=== PATIENT | male | born 1925 | race African-American/Black ===

== ENCOUNTER 2017-03-17 14:47 | Observation (INO) | payer MEDICARE, BC ==
[2017-03-17 16:32] LABS: Troponin I 0.098 ng/mL (< 0.028)
[2017-03-17 17:19] VITALS: BMI 19.7
[2017-03-17] MEDS ORDERED: Mag-Al 1200 mg/1200 mg/30 ML UDCUP PO PRN (17:21)
[2017-03-17] MEDS ORDERED: Acetaminophen 325 MG TAB PO PRN (17:21)
--- NOTE | 2017-03-17 17:41 | HP ---
PRIMARY CARE PHYSICIAN: Lane Galicia M.D. CHIEF COMPLAINT: \\\\"My legs gave out on me.\\\\" HISTORY OF PRESENT ILLNESS: Mr. Ruff is a pleasant 89-year-old gentleman who has a history of hy pertension. He lives at home with his family. Earlier today, he was in the bathroom. It is unclea r whether or not he had urinated or defecated but his grandson saw him in the bathroom. He says he appeared to be holding onto the toilet for dear life when finally his legs began to give out on him. His grandson basically helped him to the ground. It is unclear whether or not he actually lost co nsciousness or not, or basically just fell. The patient says that he does not remember the events o f earlier today. He denies any chest pain or shortness of breath. His daughter is also at the beds ken and when asked if anything like this has happened before, she stated yes. She says it happened about a month ago. At that time, he appeared to basically just become unresponsive when family was talking to him. Again, he basically would just kind of stare blankly and it is unclear whether or n ot he was seated or standing at that time, but apparently by the time EMS had arrived, he was back t o his baseline and they did not seek any specific therapy for this. I suspect the patient probably has some baseline dementia as he is unable to tell me what year it is, and he is unable to recall th e events of earlier today and the family states that this is about his baseline. The review of syst ems is essentially unobtainable as the patient essentially has no recollection of what happened radha ier today. Currently, he has no complaints, but the review of systems is unreliable. PAST MEDICAL HISTORY: Significant for what sounds like a peptic ulcer in the past and hypertension. PAST SURGICAL HISTORY: He has had a hip fracture repair. ALLERGIES: No known drug allergies. SOCIAL HISTORY: He is . He lives at home with family. He is a nonsmoker, nondrinker. CODE STATUS: FULL CODE. His daughter Rogelio Black is his surrogate decision maker. She sounds like she is the third oldest daughter, but she says she lives the closest and usually makes all the deci sions. FAMILY HISTORY: Significant for diabetes, cancer of the breast and colon, and hypertension. CURRENT MEDICATIONS: Include omeprazole and some type of blood pressure medicine, but they were uns ure of the name and in the ER records it is listed as amlodipine 5 mg twice a day. PHYSICAL EXAMINATION: GENERAL: He is oriented to person only and he does know it is Saturday. He does know the names of hi s family who were at the bedside. The patient is well developed, but he does appear to be undernour ished. He has some temporal wasting and general muscle wasting throughout. VITAL SIGNS: Blood pressure was 112/88, heart rate 74, respiratory rate of 14, temperature is 97.6, O2 sat was 99% on room air. HEENT: His pupils are equal, round, and reactive. Extraocular muscles are intact. Sclerae are ani cteric. Throat: There is no erythema, no exudates. NECK: There is no adenopathy, no bruits. LUNGS: Clear. No wheezing, no rales. CARDIOVASCULAR: He has a normal S1 and S2. There is no S3 or S4, no murmurs, clicks or rubs. ABDOMEN: Soft, nontender, nondistended. Positive for bowel sounds. No rebound, no guarding. EXTREMITIES: There is no clubbing, cyanosis, no edema. SIGNIFICANT LABORATORY DATA: His white blood cell count was 6.9, hemoglobin 10.1, hematocrit is 33. 2, platelet count is 296. Sodium 137, potassium 4.7, chloride is 107, CO2 is 22, BUN of 27, creatin ine 1.37, glucose is 107. The patient had a CT scan of the brain showing no acute intracranial proc ess. ASSESSMENT: This is a pleasant 89-year-old gentleman who was brought to the Emergency Room after he had what sounds like a presyncopal episode, possibly syncopal at home. This was while he was in th e bathroom. I suspect it could be related to micturition syncope. He is also likely a bit volume d epleted as well. He will be placed in observation. We will get cardiac enzymes as well as an echoc ardiogram and carotid Dopplers primarily as a precaution. We will also monitor him for occult atria l fibrillation. His EKG was sinus rhythm and the rate was [address] wave changes on admission. If these are negative, then again likely it was micturition syncope. The patient als o appears a bit malnourished. I suspect likely due to early dementia. We will try supplementing hi m with Ensure and he may need an appetite stimulant as well. For hypertension, we will need to verify and reconcile with antihypertensive medications and restart this as indicated.
[2017-03-17] MEDS: Sodium Chloride 0.9% 1,000 ML IV SCH (18:34)
[2017-03-17 19:23] LABS: Troponin I 0.018 ng/mL (< 0.028)
[2017-03-17] MEDS ORDERED: FLU VACC TS2017-18 (>65YR) 0.5 ML SYRINGE IM ONE (21:00)
--- NOTE | 2017-03-17 21:53 | ULT ---
CAROTID ULTRASOUND: History: TIA. Comparison: None. Technique: Grayscale, color flow, doppler imaging of the spectral waveform analysis of carotid and vertebral ar teries. FINDINGS: Right carotid: There is minimal intimal thickening of the common carotid artery. Small amount of jenny cified plaque in the right carotid bifurcation. Peak systolic velocity internal carotid artery is 63 .0 cm/sec. Peak systolic velocity internal carotid is 39.0 cm/sec. Systolic ICA to CCA ratio is 0.89 . Left carotid. There is a significant soft plaque in the left carotid bulb with significant cross sec tional narrowing. Peak systolic velocity of the common carotid artery is 60 cm/sec. Peak systolic ve locity of the internal carotid is 68.8 cm/sec. Systolic ICA/CCA ratio is 1.2. There is atherosclerot ic disease in the proximal left external carotid artery. Antegrade flow in both vertebral arteries. IMPRESSION: No sonographic evidence of hemodynamically significant stenosis. However, there is significant ather osclerotic disease in the left carotid bulb. Better interrogation with CT angiogram of the neck is r ecommended. POS: PPP
[2017-03-17 22:25] LABS: Troponin I Less than 0.010 ng/mL (< 0.028)
[2017-03-18 05:57] LABS: #Eosinphils 0.1 thou/uL (0.0-0.7); #Lymphocytes 1.2 thou/uL (1.20-3.40); #Monocytes 0.4 thou/uL (0.11-0.59); %Basophils 0.6 % (0.0-1.0); %Eosinophils 2.5 % (0.0-10.0); %Lymphocytes 20.6 % (21.0-51.0); %Monocytes 7.4 % (0.0-10.0); Anion Gap 11 mmol/L (10-20); BUN (Urea Nitrogen) 20 mg/dL (8.4-25.7); Calc. Creatinine Clearance 33 mL/min (70-130); Calcium 8.8 mg/dL (7.8-10.44); Carbon Dioxide 20 mmol/L (23-31); Chloride 107 mmol/L (98-107); Cholesterol 139 mg/dl (< 200 Desired); Estimated GFR-MDRD 74; Hematocrit 32.7 % (42.0-52.0); LDL Cholesterol, Calculated 73 mg/dL; Mean Platelet Volume 9.5 fL (7.4-10.4); Red Blood Cell (RBC) Count 3.85 mill/uL (4.70-6.10); White Blood Cell (WBC) Count 5.8 thou/uL (4.8-10.8)
[2017-03-18 05:58] LABS: Microcytosis SLIGHT = 6-15 cells (100X) (0-5/hpf)
[2017-03-18] MEDS: Sodium Chloride 0.9% 1,000 ML IV SCH (06:07)
[2017-03-18] MEDS ORDERED: Calcium Carbonate 500 MG ChewTAB PO PRN (08:32)
[2017-03-18] MEDS ORDERED: Ondansetron ODT 4 MG TAB PO PRN (08:32)
[2017-03-18] MEDS ORDERED: Senokot 8.6 MG TAB PO PRN (08:32)
[2017-03-18] MEDS ORDERED: Ondansetron HCl/PF 4 MG/2 ML Vial IVP PRN (08:32)
[2017-03-18] MEDS ORDERED: Nitroglycerin 0.4 MG TAB (25 Tab Bottle) PO PRN (08:32)
[2017-03-18 08:56] LABS: Magnesium 2.4 mg/dL (1.6-2.6); Phosphorus 2.3 mg/dL (2.3-4.7)
[2017-03-18] MEDS ORDERED: Cyanocobalamin (Vitamin B-12) 1,000 MCG TAB PO SCH (09:00)
[2017-03-18] MEDS ORDERED: Amlodipine 5 MG TAB PO SCH ×3 (09:00→21:00)
[2017-03-18] MEDS ORDERED: Docusate 100 MG CAP PO SCH ×2 (09:00→21:00)
[2017-03-18] MEDS ORDERED: Enoxaparin Sodium 40 MG/0.4 ML SYRINGE SC SCH (09:00)
[2017-03-18] MEDS ORDERED: Multivit, Therapeutic 1 TAB PO SCH (09:00)
[2017-03-18] MEDS ORDERED: Folic Acid 1 MG TAB PO SCH (09:00)
--- NOTE | 2017-03-18 11:22 | PDOC.PN ---
- Subjective Encounter Start Date: 03/18/17 Encounter Start Time: 10:00 Patient seen and examined. No new complaints. No overnight events - Objective Resuscitation Status: Resuscitation Status FULL:Full Resuscitation MAR Reviewed: Yes Vital Signs & Weight: Vital Signs (12 hours) Temp Pulse Resp BP BP BP BP 03/18/17 10:41 70 166/98 H 03/18/17 10:20 03/18/17 09:00 180/104 H 166/98 H 159/87 H 03/18/17 08:00 98.5 F 70 20 03/18/17 07:43 98.5 F 70 20 170/94 H 03/18/17 04:15 98.5 F 66 16 165/81 H 03/18/17 00:00 98.2 F 65 18 159/81 H Pulse Ox 03/18/17 10:41 03/18/17 10:20 98 03/18/17 09:00 03/18/17 08:00 03/18/17 07:43 100 03/18/17 04:15 95 03/18/17 00:00 95 Weight Weight 115 lb I&O: 03/17/17 03/18/17 03/19/17 06:59 06:59 06:59 Intake Total 1180 209 Output Total 275 Balance 905 209 Result Diagrams: 03/18/17 05:19 03/18/17 05:19 Radiology Reviewed by me: No (Carotid - neg) EKG Reviewed by me: Yes (Tele SR) Phys Exam - Physical Examination Constitutional: NAD Respiratory: no wheezing, no rales, no rhonchi Symmetrical Cardiovascular: RRR, no rub, gallop no heaves/pulsations Gastrointestinal: soft, non-tender, no distention, positive bowel sounds Musculoskeletal: no edema Neurological: non-focal, moves all 4 limbs Dx/Plan (1) Syncope Code(s): R55 - SYNCOPE AND COLLAPSE Status: Acute (2) Elevated troponin Code(s): R74.8 - ABNORMAL LEVELS OF OTHER SERUM ENZYMES Status: Acute Comment: prob due to ml (3) ML (acute kidney injury) Code(s): N17.9 - ACUTE KIDNEY FAILURE, UNSPECIFIED Status: Acute (4) Chronic anemia Code(s): D64.9 - ANEMIA, UNSPECIFIED Status: Chronic (5) CKD (chronic kidney disease) stage 2, GFR 60-89 ml/min Code(s): N18.2 - CHRONIC KIDNEY DISEASE, STAGE 2 (MILD) Status: Chronic (6) GERD (gastroesophageal reflux disease) Code(s): K21.9 - GASTRO-ESOPHAGEAL REFLUX DISEASE WITHOUT ESOPHAGITIS Status: Chronic (7) HTN (hypertension) Code(s): I10 - ESSENTIAL (PRIMARY) HYPERTENSION Status: Chronic - Plan cont current plan of care, plan discussed w/ family, PT/OT, DVT proph w/SCDs * DC IV fluids * Cont Amlodipine * Await Echo * Consult Cardio - family requested * Cont to monitor * DC planning Review of Systems - Review of Systems Respiratory: negative: Cough, Dry, Shortness of Breath, Hemoptysis, SOB with Excertion, Pleuritic Pain, Sputum, Wheezing Cardiovascular: negative: Chest Pain, Palpitations, Orthopnea, Paroxysmal Noc. Dyspnea, Edema, Light Headedness, Other Gastrointestinal: negative: Nausea, Vomiting, Abdominal Pain, Diarrhea, Constipation, Melena, Hematochezia, Other - Medications/Allergies Allergies/Adverse Reactions: Allergies Allergy/AdvReac Type Severity Reaction Status Date / Time No Known Drug Allergies Allergy Verified 03/17/17 17:21 Medications: Current Medications Acetaminophen (Tylenol) 650 mg PO Q4H PRN PRN Reason: Headache/Fever or Pain Al Hydroxide/Mg Hydroxide (Maalox) 30 ml PO Q6H PRN PRN Reason: Heartburn or Indigestion Amlodipine Besylate (Norvasc) 5 mg PO BID [facility] Calcium Carbonate (Tums) 1,000 mg PO Q4H PRN PRN Reason: Heartburn or Indigestion Calcium/Vitamin D (Caltrate 600 + Vit D) 1 tab PO BID[facility] Cyanocobalamin (Vitamin B-12) 1,000 mcg PO DAILY [facility] Last Admin: 03/18/17 10:40 Dose: 1,000 mcg Docusate Sodium (Colace) 100 mg PO BID [facility] Last Admin: 03/18/17 10:40 Dose: 100 mg Folic Acid (Folvite) 1 mg PO DAILY [facility] Last Admin: 03/18/17 10:40 Dose: 1 mg Multivitamins (Theragran) 1 tab PO DAILY [facility] Last Admin: 03/18/17 10:41 Dose: 1 tab Nitroglycerin (Nitrostat) 0.4 mg PO Q5MIN PRN PRN Reason: Chest Pain Ondansetron HCl (Zofran Odt) 4 mg PO Q6H PRN PRN Reason: Nausea/Vomiting Ondansetron HCl (Zofran) 4 mg IVP Q6H PRN PRN Reason: Nausea/Vomiting Pantoprazole Sodium (Protonix) 40 mg PO DAILY [facility] Last Admin: 03/18/17 08:58 Dose: 40 mg Senna (Senokot) 2 tab PO HSPRN PRN PRN Reason: Constipation Sodium Chloride (Flush - Normal Saline) 10 ml IVF PRN PRN PRN Reason: Saline Flush
[2017-03-18] MEDS ORDERED: Polyethylene Glycol 3350 17 GM Packet PO PRN (12:38)
[2017-03-18] MEDS ORDERED: hydrALAZINE 20 MG/ML VIAL SLOW IVP PRN (12:58)
[2017-03-18 15:35] VITALS: TEMP 98.3
[2017-03-18 15:58] VITALS: BP 129/75
--- NOTE | 2017-03-18 16:13 | CON ---
CARDIOLOGY CONSULTATION NOTE DATE OF CONSULTATION: 03/18/2017 REFERRING PHYSICIAN: Dr. Engel. REASON FOR CONSULTATION: Reported syncope. HISTORY OF PRESENT ILLNESS: Mr. Ruff is a pleasant 89-year-old black gentleman who was brought t o the Emergency Department by family after what is described as his legs giving out on him while goi ng to the bathroom. He was urinating and had rocked forward and his son walked in to the bathroom t o keep him from falling. He fell backwards into his arms and he set him on the floor. He did not l ose consciousness as far as they know, but he had a little memory of the event. He denies any dizziness, chest pain, palpitations, shortness of breath or other cardiovascular sympt oms prior to or after the event and he was brought in for observation. His observation telemetry st rips and vitals have proved unremarkable. PAST MEDICAL HISTORY: 1. Hypertension. 2. Peptic ulcer disease. PAST SURGICAL HISTORY: Hip fracture repair. ALLERGIES: No known drug allergies. SOCIAL HISTORY: He is . He lives at home with his family. He denied tobacco use or ethanol abuse. He has never used drugs. FAMILY HISTORY: Negative with respect to premature atherosclerosis. CURRENT MEDICATIONS: At home include: 1. Omeprazole 20 mg daily. 2. Amlodipine 5 mg b.i.d. REVIEW OF SYSTEMS: As per the history of present illness. Remainder of 12-system review is negativ e. PHYSICAL EXAMINATION: VITAL SIGNS: Blood pressure is 147/91, pulse 64 and regular, respiratory rate 20 and nonlabored, te mperature 98.1, oxygen saturation 98% on room air. GENERAL: This is a well-developed, thin, elderly appearing 89-year-old black gentleman in no acute distress. He is alert. He is oriented. He does answer questions, but is quite hard of hearing. HEENT: The head was atraumatic and normocephalic. Pupils are equally round and reactive. Sclerae and conjunctivae are clear. There are no oral lesions. NECK: Supple. No JVD, thyromegaly or carotid bruits. CHEST: Symmetrical inspiration and expiration. HEART: Regular rate and rhythm with no murmur, S3 or S4. PMI is nondisplaced, not enlarged. LUNGS: Clear to auscultation in all telles. No adventitious sounds appreciated. ABDOMEN: Soft, nontender and nondistended, without mass or organomegaly. Bowel sounds are present in all 4 quadrants. No flank bruits auscultated. EXTREMITIES: 2+ pulses noted bilaterally in the upper and lower extremity, strength 5/5 bilaterally . There is no clubbing, cyanosis or edema. NEUROLOGIC: Grossly intact without focal motor deficits appreciated. DATABASE: EKG reveals sinus rhythm with nonspecific T changes. LABORATORY DATA: CBC reveals a white count of 5, hemoglobin and hematocrit 9 and 32, platelet count elevated too numerous to process. Platelet clumping noted. Chemistries: Sodium is 134, potassium 4.4, chloride 107, bicarbonate 20, BUN and creatinine 20 and 1.1. GFR is estimated at 74. CK and CK-MB measurements are normal. Troponin indeterminate on init ial draw and trending down to normal thereafter. TSH is normal. ASSESSMENT: 1. Presyncope. 2. Hypertension. 3. Gastroesophageal reflux disease. 4. Chronic kidney disease stage 2 5. Thrombocytosis. RECOMMENDATIONS: 1. From a cardiac standpoint, he is stable and asymptomatic. His symptoms are suggestive of possib le paroxysmal dysrhythmia, but telemetry recordings during his observation appeared normal. We have opted to move forward with a 2-week event monitoring and will send to monitor to his home setting f or a 2-week period of time and follow up in the outpatient setting thereafter. 2. For now, I do not recommend any medication changes. He may be discharged per review of the [facility] service once again if feasible. He will follow up with me in 2 weeks time after the event monit oring. It is completed for review of the results. I will appreciate the opportunity to participate in his care.
[2017-03-18] MEDS ORDERED: Calcium Carbonate + Vit D 1 TAB PO SCH (17:00)
[2017-03-19] MEDS ORDERED: Amlodipine 10 MG TAB PO SCH ×2 (09:00)
[2017-03-19] MEDS ORDERED: Amlodipine 5 MG TAB PO SCH (09:00)
--- NOTE | 2017-03-19 11:55 | DIS ---
DATE OF DISCHARGE: 03/18/2017 DISCHARGE DISPOSITION: Home with home health care. FOLLOWUP: Follow up with primary care physician, Dr. Engel in one week. The patient was seen and examined on the day of discharge. Denies any new complaints. No chest bethany n, shortness of breath, palpitations reported. INPATIENT EGG PROCESSOR: Cardiology, Dr. Gaston Pineda. DISCHARGE MEDICATIONS: As same as admission medications: 1. Amlodipine 10 mg daily. 2. Omeprazole 40 mg daily. 3. Family was advised to start him on vitamin B12, folic acid, multivitamin and calcium with vitami n D. BRIEF HOSPITAL COURSE: The patient is an 89-year-old male with hypertension, who presented to the [facility] with syncopal episode. Please refer to the history and physical dated 03/17/2017 for furthe r details. The patient was admitted to the hospital with a diagnosis of syncope. Serial cardiac enzymes were n egative except for the first one, which was in the indeterminate range at 0.098. His creatinine on admission was 1.37 that improved to 1.13 at discharge. His BUN was 27 that improved to 20 at discha rge. The patient was evaluated by Cardiology, Dr. Pineda. Event monitor will be arranged by Dr. Pineda 's office. The patient will follow up with Dr. Pineda as outpatient. His echocardiogram showed left ventricular ejection fraction of 60% to 65% with diastolic dysfunction. Left ventricular size was n ormal. Plan of care was discussed with the patient and the family at the bedside. They stated understandin g. DIAGNOSTIC TESTS: 1. Echocardiogram as discussed above. 2. Carotid ultrasound showed no sonographic evidence of hemodynamically significant stenosis. Barron sherrill, there is significant atherosclerotic disease in the left carotid bulb. Better interrogation [facility] CT angiogram of the neck is recommended. Primary care physician is advised to follow. 3. CT scan of the brain was negative. 4. Chest x-ray was negative for acute findings. IMPRESSION: 1. Syncope of unclear etiology. Probably secondary to arrhythmia versus dehydration. 2. Mild acute kidney injury on chronic kidney disease, stage 2. 3. Indeterminate troponins, probably secondary to demand ischemia. 4. Mild hyponatremia, improved. 5. Hypertension. 6. Chronic diastolic dysfunction. 7. Extensive atherosclerosis in the left carotid bulb without hemodynamically significant stenosis. 8. Gastroesophageal reflux disease. Plan of care was discussed with the patient. He stated understanding.
== END 2017-03-18 18:13 | disposition home or self-care (01) ==
LOC: ERS 14:47 → 2SE 16:52
PROVIDERS: ADMIT Internal Medicine; ATTEND Internal Medicine
DX: R55 Syncope and collapse (principal); I13.0 Hypertensive heart and chronic kidney disease with heart failure and stage 1 through stage 4 chronic kidney disease, or unspecified chronic kidney disease; N18.2 Chronic kidney disease, stage 2 (mild); I50.32 Chronic diastolic (congestive) heart failure; N17.9 Acute kidney failure, unspecified; E87.1 Hypo-osmolality and hyponatremia; I65.22 Occlusion and stenosis of left carotid artery; K21.9 Gastro-esophageal reflux disease without esophagitis; Z79.899 Other long term (current) drug therapy
CPT/HCPCS: 80048; 80061; 82553; 83735; 84100; 84443; 84484; 85025; 93005; 93306; 93880; 94760; 96360; 96361 ×2; 97116; 97139 ×2; 97530; 99285; G0008; G0378; G8978; G8979; G8980; G8987; G8988; Q2036; 36415; 90471; 90682; J1650